=== PATIENT | female | born 1970 | race Caucasian/White ===

== ENCOUNTER → 2018-06-27 15:08 | Outpatient (CLI) | payer OTHER, SELFPAY ==
--- NOTE | 2018-06-27 | DI.MG.S_ITS ---
BILATERAL DIGITAL SCREENING MAMMOGRAM 3D/2D WITH CAD: 06/27/2018 CLINICAL: Routine screening. Comparison is made to exams dated: 06/14/2017 mammogram, 06/04/2016 mammogram, and 05/18/2015 mammogram - [facility]. The tissue of both breasts is heterogeneously dense. This may lower the sensitivity of mammography. Current study was also evaluated with a Computer Aided Detection (CAD) system. No significant masses, calcifications, or other findings are seen in either breast. There has been no significant interval change. IMPRESSION: NEGATIVE There is no mammographic evidence of malignancy. A 1 year screening mammogram is recommended. This exam was interpreted at Station ID: [id number]. NOTE: For mammograms, a report in lay terms will be sent to the patient. Approximately 15% of breast malignancies will not be visualized mammographically. In the management of a palpable breast mass, a negative mammogram must not discourage biopsy of a clinically suspicious lesion. Electronically Signed By: Mahsa matamoros/robert:06/27/2018 15:41:31 letter sent: Normal Exam ACR BI-RADS Category 1: Negative 3341F
== END ==
PROVIDERS: PCP Nurse Practitioner Family; Visit Provider Nurse Practitioner Family
DX: Z12.31 Encounter for screening mammogram for malignant neoplasm of breast (principal)
CPT/HCPCS: 77063; 77067

== ENCOUNTER → 2019-06-30 16:05 | Outpatient (CLI) | payer OTHER, SELFPAY ==
--- NOTE | 2019-06-30 | DI.MG.S_ITS ---
BILATERAL DIGITAL SCREENING MAMMOGRAM 3D/2D WITH CAD: 06/30/2019 CLINICAL: Routine screening. Comparison is made to exams dated: 06/27/2018 mammogram, 06/14/2017 mammogram, and 06/04/2016 mammogram - [facility]. The tissue of both breasts is heterogeneously dense. This may lower the sensitivity of mammography. Current study was also evaluated with a Computer Aided Detection (CAD) system. No significant masses, calcifications, or other findings are seen in either breast. There has been no significant interval change. IMPRESSION: NEGATIVE There is no mammographic evidence of malignancy. A 1 year screening mammogram is recommended. This exam was interpreted at Station ID: [id number]. NOTE: For mammograms, a report in lay terms will be sent to the patient. Approximately 15% of breast malignancies will not be visualized mammographically. In the management of a palpable breast mass, a negative mammogram must not discourage biopsy of a clinically suspicious lesion. Electronically Signed By: Mahsa matamoros/robert:06/30/2019 16:52:45 letter sent: Normal Exam ACR BI-RADS Category 1: Negative 3341F
== END ==
PROVIDERS: PCP Nurse Practitioner Family; Visit Provider Nurse Practitioner Family
DX: Z12.31 Encounter for screening mammogram for malignant neoplasm of breast (principal)
CPT/HCPCS: 77063; 77067

== ENCOUNTER → 2020-07-02 12:42 | Outpatient (CLI) | payer OTHER, SELFPAY ==
--- NOTE | 2020-07-02 | DI.MG.S_ITS ---
BILATERAL DIGITAL SCREENING MAMMOGRAM 3D/2D WITH CAD: 07/02/2020 CLINICAL: Routine screening. Comparison is made to exams dated: 06/30/2019 mammogram, 06/27/2018 mammogram, and 06/14/2017 mammogram - [facility]. The tissue of both breasts is heterogeneously dense. This may lower the sensitivity of mammography. Current study was also evaluated with a Computer Aided Detection (CAD) system. No significant masses, calcifications, or other findings are seen in either breast. There has been no significant interval change. IMPRESSION: NEGATIVE There is no mammographic evidence of malignancy. A 1 year screening mammogram is recommended. This exam was interpreted at Station ID: [id number]. NOTE: For mammograms, a report in lay terms will be sent to the patient. Approximately 15% of breast malignancies will not be visualized mammographically. In the management of a palpable breast mass, a negative mammogram must not discourage biopsy of a clinically suspicious lesion. Electronically Signed By: Josafat johansen/robert:07/04/2020 09:08:22 letter sent: Normal Exam ACR BI-RADS Category 1: Negative 3341F
== END ==
PROVIDERS: PCP Family Medicine; Referring Provider Family Medicine; Visit Provider Family Medicine
DX: Z12.31 Encounter for screening mammogram for malignant neoplasm of breast (principal)
CPT/HCPCS: 77063; 77067

== ENCOUNTER → 2021-07-04 15:46 | Outpatient (CLI) | payer OTHER, SELFPAY ==
--- NOTE | 2021-07-04 | DI.MG.S_ITS ---
BILATERAL DIGITAL SCREENING MAMMOGRAM 3D/2D WITH CAD: 07/04/2021 CLINICAL: Routine screening. Comparison is made to exams dated: 06/30/2019 mammogram, 07/02/2020 mammogram, and 06/27/2018 mammogram - [facility]. The tissue of both breasts is heterogeneously dense. This may lower the sensitivity of mammography. Current study was also evaluated with a Computer Aided Detection (CAD) system. No significant masses, calcifications, or other findings are seen in either breast. There has been no significant interval change. IMPRESSION: NEGATIVE There is no mammographic evidence of malignancy. A 1 year screening mammogram is recommended. This exam was interpreted at Station ID: [id number]. NOTE: For mammograms, a report in lay terms will be sent to the patient. Approximately 15% of breast malignancies will not be visualized mammographically. In the management of a palpable breast mass, a negative mammogram must not discourage biopsy of a clinically suspicious lesion. Electronically Signed By: Josafat johansen/robert:07/04/2021 17:01:36 letter sent: Normal Exam ACR BI-RADS Category 1: Negative 3341F
== END ==
PROVIDERS: PCP Family Medicine; Referring Provider Family Medicine; Visit Provider Family Medicine
DX: Z12.31 Encounter for screening mammogram for malignant neoplasm of breast (principal)
CPT/HCPCS: 77063; 77067

== ENCOUNTER → 2021-10-28 07:28 | Outpatient (CLI) | payer OTHER, SELFPAY ==
[2021-10-28 08:13] LABS: COVID19 -Nasal RAPID POSITIVE (Negative)
== END ==
PROVIDERS: PCP Family Medicine; Visit Provider Physician Assistant
DX: Z20.822 Contact with and (suspected) exposure to COVID-19 (principal)
CPT/HCPCS: 87635

== ENCOUNTER → 2022-07-18 16:36 | Outpatient (CLI) | payer OTHER, SELFPAY ==
--- NOTE | 2022-07-18 16:37 | DI.MG.S_ITS ---
BILATERAL DIGITAL SCREENING MAMMOGRAM 3D/2D WITH CAD: 07/18/2022 CLINICAL: Routine screening. Comparison is made to exams dated: 07/04/2021 mammogram, 07/02/2020 mammogram, and 06/30/2019 mammogram - [facility]. Both breasts are heterogeneously dense, which may obscure small masses (category c / 51-75% glandular tissue). Current study was also evaluated with a Computer Aided Detection (CAD) system. No significant masses, calcifications, or other findings are seen in either breast. There has been no significant interval change. IMPRESSION: NEGATIVE There is no mammographic evidence of malignancy. A 1 year screening mammogram is recommended. Based on the Tyrer Cuzick model (a risk assessment model) the patient's lifetime risk is 12.4% and her 10 year risk is 2.9%. According to the ACR, ACS, and NCCN guidelines, an annual breast MRI exam along with mammogram is recommended if the patient's lifetime risk is 20% or greater. This exam was interpreted at Station ID: [id number]. NOTE: For mammograms, a report in lay terms will be sent to the patient. Approximately 15% of breast malignancies will not be visualized mammographically. In the management of a palpable breast mass, a negative mammogram must not discourage biopsy of a clinically suspicious lesion. Electronically Signed By: Marcelino Guillory M.D., jr/robert:07/19/2022 11:13:26 letter sent: Normal Exam ACR BI-RADS Category 1: Negative 3341F
== END ==
PROVIDERS: PCP Family Medicine; Referring Provider Family Medicine; Visit Provider Family Medicine
DX: Z12.31 Encounter for screening mammogram for malignant neoplasm of breast (principal)
CPT/HCPCS: 77063; 77067

== ENCOUNTER → 2023-04-17 13:16 | Outpatient (CLI) | payer OTHER, SELFPAY ==
--- NOTE | 2023-04-17 | DI.MRI.S_ITS ---
PROCEDURE: MR LUMBAR SPINE WO CON INDICATIONS: Low back pain, unspecified TECHNIQUE: Noncontrast sagittal T1 spin echo and T2 fast echo, sagittal STIR, and T2 fast spin echo through the lumbar spine. In cases with scoliosis, additional coronal T2 fast spin echo may be performed. COMPARISON: None. FINDINGS: Image quality: Diagnostic. Alignment and Curvature: There is normal bony alignment. Bone Marrow: Marrow is of normal overall signal. Scattered foci are seen, which are hyperintense on T1-weighted and T2-weighted imaging, which are most consistent with benign vertebral body hemangiomas. The most prominent of these can be seen within the T11 vertebral body. No acute vertebral body compression fractures. Spinal Cord: Conus medullaris terminates at the L1 level. Visualized cord demonstrates normal signal and size. Paraspinous Soft Tissues: No paravertebral masses. T12-L1: Normal appearance. L1-L2: Normal appearance. L2-L3: Normal appearance. L3-L4: The disc height and disk signal are well-preserved. Mild to moderate disc bulge is seen, which is eccentric to the left. Mild facet joint hypertrophy is seen. There is jzef-eb-viemcdjg left-sided and mild right-sided neural foraminal narrowing. Mild central canal narrowing is seen. L4-L5: The disc height and disk signal are relatively well-preserved. Mild to moderate disc bulge is seen, with a central/left disc protrusion. There is a focal annular fissure seen posteriorly. Moderate facet joint hypertrophy is seen. Moderate bilateral neural foraminal narrowing is seen. Moderate central canal narrowing is seen. L5-S1: The disc height is well-preserved. Loss of disc signal is seen at this level. Mild to moderate disc bulge is seen, with a mild central disc protrusion. There is a focal annular fissure seen posteriorly. There is fvgb-mh-odhrnhiy right-sided and mild left-sided neural foraminal narrowing. There is at least moderate bilateral neural foraminal narrowing seen, right worse than left. There is a degree of compression seen upon the exiting nerve roots. Mild central canal narrowing is seen. IMPRESSION: Lower lumbar spine degenerative changes are seen. Dictated by: Reynaldo Hanson M.D. on 04/17/2023 at 13:13 Approved by: Reynaldo Hanson M.D. on 04/17/2023 at 13:16
== END ==
PROVIDERS: PCP Family Medicine; Referring Provider Orthopaedic Surgery Orthopaedic Surgery of the Spine; Visit Provider Orthopaedic Surgery Orthopaedic Surgery of the Spine
DX: M54.50 Low back pain, unspecified; M47.816 Spondylosis without myelopathy or radiculopathy, lumbar region
CPT/HCPCS: 72148

== ENCOUNTER 2023-05-07 20:30 | Emergency (ER) | payer OTHER, SELFPAY ==
--- NOTE | 2023-05-07 20:39 | DI.RAD.S_ITS ---
PROCEDURE: XR CHEST 1V INDICATIONS: chest pain TECHNIQUE: One view of the chest was acquired. COMPARISON: [facility], , CHEST 1 VIEW, 05/06/2017, 0:32. FINDINGS: Surgical changes and devices: None. Lungs and pleura: Lungs are clear. No pleural effusions or pneumothorax. Mediastinum: Mediastinal contours appear normal. Heart size is normal. Bones and chest wall: No suspicious bony lesions. Overlying soft tissues appear unremarkable. IMPRESSION: 1. No acute cardiopulmonary disease. Dictated by: Josafat Oliva M.D. on 05/07/2023 at 22:08 Approved by: Josafat Oliva M.D. on 05/07/2023 at 22:08
[2023-05-07 20:55] VITALS: BP 109/65; PULSE 60; RESP 14; TEMP 36.1; O2SAT 100; BMI 22.5
[2023-05-07] MEDS: ASPIRIN 81 MG CHEW TAB 324 MG PO (20:57)
[2023-05-07 21:05] LABS: Add Manual Diff / Slide Review NO; Basophils Absolute Auto 0 /uL (0-100); Basophils Percent Auto 0.6 % (0-2); Eosinophils Absolute Auto 100 /uL (0-450); Eosinophils Percent Auto 1.7 % (2-4); Hematocrit 40.7 % (36-46); Hemoglobin 13.9 g/dL (12.0-16.0); Lymphocytes Absolute Auto 3100 /uL (1100-4500); Lymphocytes Percent Auto 40.7 % (25-40); Mean Corpuscular HGB Conc 34.2 % (30-36); Mean Corpuscular Hemoglobin 31.2 PG (26-34); Mean Corpuscular Volume 91.3 fL (80-100); Monocytes Absolute Auto 500 /uL (0-900); Monocytes Percent Auto 6.7 % (3-14); Neutrophils Absolute Auto 3900 /uL (1500-7000); Neutrophils Percent Auto 50.3 % (50-75); Platelet Count 331 X10^3/uL (150-400); Red Blood Cell Count 4.46 X10^6/uL (4.0-5.2); Red Cell Distribution Width 13.6 % (11.6-14.8); White Blood Cell Count 7.7 X10^3/uL (4.5-11.0)
[2023-05-07 21:10] LABS: INR 1.1 (0.9-1.3); Prothrombin Time 12.9 SECONDS (10.1-12.7)
[2023-05-07 21:13] LABS: PTT Partial Thromboplastin Tim 31 SECONDS (26-36)
[2023-05-07 21:21] LABS: Alanine Aminotransferase 22 IU/L (<35); Albumin 4.1 g/dL (3.5-5.0); Albumin Globulin Ratio 1.1 (1.0-2.8); Alkaline Phosphatase 34 U/L (38-126); Aspartate Aminotransferase 27 IU/L (14-36); Blood Urea Nitrogen 12 mg/dL (7-17); Calcium 9.6 mg/dL (8.4-10.2); Carbon Dioxide 30 mmol/L (22-32); Chloride 102 mmol/L (98-107); Creatine Kinase 118 U/L (30-135); Estimated Glomerular Filt Rate > 60 mL/min (>60); Globulin 3.6 g/dL (1.7-4.1); Glucose 108 mg/dL (70-100); HEMOLYSIS 30 (0-50); Lipase 98 U/L (23-300); Magnesium 2.1 mg/dL (1.6-2.3); Potassium 3.7 mmol/L (3.4-5.1); Sodium 137 mmol/L (137-145); Total Protein 7.7 g/dL (6.3-8.2)
[2023-05-07 21:33] LABS: Troponin I < 0.012 ng/mL (0.01-0.034)
[2023-05-07 21:37] LABS: Bilirubin Total 0.6 mg/dL (0.2-1.3)
[2023-05-07 22:49] VITALS: BP 115/62; PULSE 55; RESP 10; O2SAT 99
[2023-05-07 23:11] VITALS: PULSE 60; RESP 12; O2SAT 98
[2023-05-07 23:23] LABS: Troponin I < 0.012 ng/mL (0.01-0.034)
[2023-05-07 23:30] VITALS: PULSE 51; RESP 15; O2SAT 97
[2023-05-08] VITALS: PULSE 49; RESP 11; O2SAT 97
--- NOTE | 2023-05-08 00:10 | ED.CHESTPAIN ---
HPI - Chest Pain General Chief Complaint: Chest Pain Stated Complaint: chest pains x 2 days, now getting worse Time Seen by Provider: 05/08/23 00:10 Source: patient Mode of arrival: Ambulatory Limitations: no limitations History of Present Illness HPI narrative: 52-year-old woman with history of hypothyroidism, she was diagnosed with COVID about 3 weeks ago describes it as a mild an uneventful course with no symptoms for the last week or so presents with chest pain that has been intermittently present now for 2 days. She describes it as left upper chest sharp pain that lasts for anywhere from 1215 minutes is not specifically associated with position, deep breathing, activity, lying flat. She describes no fevers, cough, chills, lower extremity edema, abdominal pain, vomiting. There is no significant family history of cardiac disease that runs through her family and she has minimal risk factors. Related Data Home Medications Medication Instructions Recorded Confirmed levothyroxine 13 mcg capsule 13 mcg PO DAILY 10/28/21 10/28/21 Allergies Allergy/AdvReac Type Severity Reaction Status Date / Time No Known Drug Allergies Allergy Unverified 10/28/21 07:27 Review of Systems Review of Systems Narrative: Pertinent positive and negative findings as per HPI Patient History Medical History (Updated 05/08/23 @ 00:55 by Suyapa Roman MD) Hypothyroid Social History Smoking Status: Never smoker Smoking Status: Never smoker Substance Use Type: does not use Exam Initial Vital Signs Initial Vital Signs: Vital Signs Temperature 97 F L 05/07/23 20:55 Pulse Rate 60 05/07/23 20:55 Respiratory Rate 14 05/07/23 20:55 Blood Pressure 109/65 05/07/23 20:55 Pulse Oximetry 100 05/07/23 20:55 Oxygen Delivery Method Room Air 05/07/23 20:55 General: Healthy appearing, in no acute distress. Able to give a complete and coherent history. Well-nourished well-developed HEENT: Moist mucous membranes, normal sclera with reactive pupils, Neck: No JVD, supple Respiratory: Lungs are clear to auscultation, no wheezing no rales no rhonchi. Full and symmetrical air movement. No reproducible chest pain with chest wall manipulation or palpation along sternal border Cardiac: Regular rate and rhythm no murmurs no bruits Abdomen: Soft, nontender, good bowel tones, no flank pain Skin: Warm and dry, no rashes Neurologic: Grossly neurologically intact with no obvious asymmetries or abnormalities Extremities: No trauma, well perfused, no edema Psych: Cooperative, appropriate insight and affect Course Orders Ordered: ED Orders 05/07/23 20:39 XR chest 1V Stat EKG-12 Lead Stat 05/07/23 20:50 Complete Blood Count AUTO DIFF Stat Comprehensive Metabolic Panel Stat Lipase Stat Magnesium Stat PTT Partial Thromboplastin Yann Stat Prothrombin Time INR Stat Troponin & CK Cardiac Panel Stat 05/07/23 22:55 Trop I [Troponin I] Stat 05/07/23 23:07 EKG-12 Lead Stat Discontinued Medications Aspirin (Aspirin 81 Mg Chew Tab) 324 mg PO NOW ONE Stop: 05/07/23 20:40 Last Admin: 05/07/23 20:57 Dose: 324 mg Documented By: DANISH Vital Signs Vital signs: Vital Signs - 8 hr 05/07/23 20:55 Temperature 97 F L Pulse Rate 60 Respiratory Rate 14 Blood Pressure 109/65 Pulse Oximetry 100 Oxygen Delivery Method Room Air MDM - Chest Pain Lab Data 05/07/23 20:50 05/07/23 20:50 Labs: Lab Results 05/07/23 05/07/23 05/07/23 Range/Units 20:50 20:50 20:50 WBC 7.7 (4.5-11.0) X10^3/uL RBC 4.46 (4.0-5.2) X10^6/uL Hgb 13.9 (12.0-16.0) g/dL Hct 40.7 (36-46) % MCV 91.3 (80-100) fL MCH 31.2 (26-34) PG MCHC 34.2 (30-36) % RDW 13.6 (11.6-14.8) % Plt Count 331 (150-400) X10^3/uL Neut % (Auto) 50.3 (50-75) % Lymph % (Auto) 40.7 H (25-40) % [place] % (Auto) 6.7 (3-14) % Eos % (Auto) 1.7 L (2-4) % Baso % (Auto) 0.6 (0-2) % Neut # (Auto) 3900 (1655-0219) /uL Lymph # (Auto) 3100 (3982-4835) /uL [place] # (Auto) 500 (0-900) /uL Eos # (Auto) 100 (0-450) /uL Baso # (Auto) 0 (0-100) /uL PT 12.9 H (10.1-12.7) SECONDS INR 1.1 (0.9-1.3) APTT 31 (26-36) SECONDS Sodium 137 (137-145) mmol/L Potassium 3.7 (3.4-5.1) mmol/L Chloride 102 (98-107) mmol/L Carbon Dioxide 30 (22-32) mmol/L BUN 12 (7-17) mg/dL Creatinine 0.92 (0.52-1.04) mg/dL Estimated GFR > 60 (>60) mL/min BUN/Creatinine Ratio 13.0 (6-22) Glucose 108 H (70-100) mg/dL Calcium 9.6 (8.4-10.2) mg/dL Magnesium 2.1 (1.6-2.3) mg/dL Total Bilirubin 0.6 (0.2-1.3) mg/dL AST 27 (14-36) IU/L ALT 22 (<35) IU/L Alkaline Phosphatase 34 L (38-126) U/L Total Creatine Kinase 118 (30-135) U/L Troponin I < 0.012 (0.01-0.034) ng/mL Total Protein 7.7 (6.3-8.2) g/dL Albumin 4.1 (3.5-5.0) g/dL Globulin 3.6 (1.7-4.1) g/dL Albumin/Globulin Ratio 1.1 (1.0-2.8) Lipase 98 (23-300) U/L 05/07/23 Range/Units 22:55 WBC (4.5-11.0) X10^3/uL RBC (4.0-5.2) X10^6/uL Hgb (12.0-16.0) g/dL Hct (36-46) % MCV (80-100) fL MCH (26-34) PG MCHC (30-36) % RDW (11.6-14.8) % Plt Count (150-400) X10^3/uL Neut % (Auto) (50-75) % Lymph % (Auto) (25-40) % [place] % (Auto) (3-14) % Eos % (Auto) (2-4) % Baso % (Auto) (0-2) % Neut # (Auto) (7006-8674) /uL Lymph # (Auto) (4499-6575) /uL [place] # (Auto) (0-900) /uL Eos # (Auto) (0-450) /uL Baso # (Auto) (0-100) /uL PT (10.1-12.7) SECONDS INR (0.9-1.3) APTT (26-36) SECONDS Sodium (137-145) mmol/L Potassium (3.4-5.1) mmol/L Chloride (98-107) mmol/L Carbon Dioxide (22-32) mmol/L BUN (7-17) mg/dL Creatinine (0.52-1.04) mg/dL Estimated GFR (>60) mL/min BUN/Creatinine Ratio (6-22) Glucose (70-100) mg/dL Calcium (8.4-10.2) mg/dL Magnesium (1.6-2.3) mg/dL Total Bilirubin (0.2-1.3) mg/dL AST (14-36) IU/L ALT (<35) IU/L Alkaline Phosphatase (38-126) U/L Total Creatine Kinase (30-135) U/L Troponin I < 0.012 (0.01-0.034) ng/mL Total Protein (6.3-8.2) g/dL Albumin (3.5-5.0) g/dL Globulin (1.7-4.1) g/dL Albumin/Globulin Ratio (1.0-2.8) Lipase (23-300) U/L MDM Narrative Medical decision making narrative: CC: Left chest pain for 48 hours, acute problem uncertain prognosis Complicating co-morbidities: Recently resolved COVID infection, hypothyroidism Data collected from: patient, Differential considered: Acute coronary syndrome, dissection, pulmonary embolism, pneumothorax, cardiomyopathy, pleurisy, chest wall pain, Exam documented above, pertinent findings include: Entirely benign exam with no reproducible chest pain Lab Test results independently reviewed as above. Pertinent findings: CBC shows White blood cell count is unremarkable, no significant anemia Chemistries are reassuring Troponin x3 over the course of her ER stay are all undetectable Free T4 is appropriate at 1.28 Independently reviewed EKG sinus rhythm at a rate of 61 with normal intervals, normal axis no acute ischemic changes. EKG 2. Is equally unremarkable and unchanged from initial Imaging studies independently reviewed: Chest x-ray is unremarkable Treatments: Tubal aspirin, parenteral Toradol Discussion: 52-year-old woman with 48 hours of intermittent left upper chest pain with unremarkable workup. Her heart score is 1 due to age alone placing her low risk category. Clinical exam and vital signs do not suggest pulmonary embolism. No evidence of additional life-threatening abnormality or acute coronary syndrome, pneumonia, pneumothorax, cardiomyopathy. I am less concerned for pleurisy however most likely diagnosis at this point is some type of musculoskeletal chest pain. Findings reviewed with patient I do not believe additional imaging studies admission or laboratory workup required at this time. She is given Toradol which does seem to help. Discussed use of ibuprofen and Tylenol and return should symptoms worsen. Questions are answered and she is safe for discharge Discharge Plan Departure Patient Disposition: Home Clinical Impression: Atypical chest pain Instructions: DI for Atypical Chest Pain Activity Restrictions/Additional Instructions: Thank you for coming in today I am not finding any life-threatening abnormalities to explain your chest pain. Specifically, there is no sign of heart attack, enlarged heart, collapsed lung, pneumonia or any complications from your recent mild COVID infection. In the emergency department you are given a dose of Toradol to see if this might help with a musculoskeletal component of your pain. If you find that it did help after discharge you may find that using 400 mg of ibuprofen (2 pnzw-tsl-iacflji pills) and 1 Tylenol every 6 hours can be very helpful. If you develop shortness of breath, difficulty lying flat because of shortness of breath, a change to the quality or intensity of your pain or develop new symptoms it would be very appropriate return to the emergency department Prescriptions: No Action levothyroxine 13 mcg capsule 13 mcg PO DAILY Referrals: Taniya Cooper DO [Primary Care Provider] - Stand Alone Forms: Patient Portal/API
[2023-05-08 00:30] VITALS: PULSE 52; RESP 14; O2SAT 96
[2023-05-08 00:45] VITALS: BP 96/53; PULSE 62; RESP 22; O2SAT 99
[2023-05-08] MEDS: KETOROLAC 30 MG/ML VIAL 15 MG IV (00:54)
[2023-05-08 01:00] VITALS: BP 100/58; PULSE 58; RESP 17; O2SAT 99
== END 2023-05-08 01:24 | disposition home or self-care (01) ==
PROVIDERS: Emergency Provider Emergency Medicine; PCP Family Medicine
DX: R07.89 Other chest pain (principal)
CPT/HCPCS: 36415; 71045; 80053; 82550; 83690; 83735; 84484; 85025; 85610; 85730; 93005; 93010; 96374; 99284; J1885

== ENCOUNTER → 2023-07-19 08:18 | Outpatient (CLI) | payer OTHER, SELFPAY ==
--- NOTE | 2023-07-19 | DI.MG.S_ITS ---
BILATERAL DIGITAL SCREENING MAMMOGRAM 3D/2D WITH CAD: 07/19/2023 CLINICAL: Routine screening. Comparison is made to exams dated: 07/18/2022 mammogram, 07/04/2021 mammogram, and 07/02/2020 mammogram - [facility]. Both breasts are heterogeneously dense, which may obscure small masses (category c / 51-75% glandular tissue). Current study was also evaluated with a Computer Aided Detection (CAD) system. No significant masses, calcifications, or other findings are seen in either breast. There has been no significant interval change. IMPRESSION: NEGATIVE There is no mammographic evidence of malignancy. A 1 year screening mammogram is recommended. Based on the Tyrer Cuzick model (a risk assessment model) the patient's lifetime risk is 12.4% and her 10 year risk is 3.0%. According to the ACR, ACS, and NCCN guidelines, an annual breast MRI exam along with mammogram is recommended if the patient's lifetime risk is 20% or greater. This exam was interpreted at Station ID: [id number]. NOTE: For mammograms, a report in lay terms will be sent to the patient. Approximately 15% of breast malignancies will not be visualized mammographically. In the management of a palpable breast mass, a negative mammogram must not discourage biopsy of a clinically suspicious lesion. Electronically Signed By: Mahsa matamoros/robert:07/19/2023 10:07:19 letter sent: Normal Exam ACR BI-RADS Category 1: Negative 3341F
== END ==
PROVIDERS: PCP Family Medicine; Referring Provider Family Medicine; Visit Provider Family Medicine
DX: Z12.31 Encounter for screening mammogram for malignant neoplasm of breast (principal)
CPT/HCPCS: 77063; 77067

== ENCOUNTER 2023-12-16 16:57 | Emergency (ER) | payer OTHER, SELFPAY ==
[2023-12-16] VITALS (8 sets, daily range): BP systolic 96–135; BP diastolic 52–61; PULSE 58–75; RESP 12–23; TEMP 36.6; O2SAT 96–100; BMI 20.9
--- NOTE | 2023-12-16 17:05 | DI.RAD.S_ITS ---
PROCEDURE: XR CHEST 1V INDICATIONS: chest pain TECHNIQUE: One view of the chest was acquired. COMPARISON: [facility], CR, XR CHEST 1V, 05/07/2023, 20:48. FINDINGS: Surgical changes and devices: None. Lungs and pleura: Lungs are clear. No pleural effusions or pneumothorax. Mediastinum: Mediastinal contours appear normal. Heart size is normal. Bones and chest wall: No suspicious bony lesions. Overlying soft tissues appear unremarkable. IMPRESSION: No acute cardiopulmonary abnormality is seen. Dictated by: Lizbeth Puckett M.D. on 12/16/2023 at 17:48 Approved by: Lizbeth Puckett M.D. on 12/16/2023 at 17:48
[2023-12-16] MEDS: ASPIRIN 81 MG CHEW TAB 324 MG PO (17:09)
[2023-12-16 17:21] LABS: Add Manual Diff / Slide Review NO; Basophils Absolute Auto 0 /uL (0-100); Basophils Percent Auto 0.7 % (0-2); Eosinophils Absolute Auto 100 /uL (0-450); Eosinophils Percent Auto 1.3 % (2-4); Hematocrit 43.5 % (36-46); Hemoglobin 14.8 g/dL (12.0-16.0); Lymphocytes Absolute Auto 1900 /uL (1100-4500); Lymphocytes Percent Auto 30.2 % (25-40); Mean Corpuscular HGB Conc 34.1 % (30-36); Mean Corpuscular Hemoglobin 32.8 PG (26-34); Mean Corpuscular Volume 96.1 fL (80-100); Monocytes Absolute Auto 500 /uL (0-900); Monocytes Percent Auto 7.2 % (3-14); Neutrophils Absolute Auto 3800 /uL (1500-7000); Neutrophils Percent Auto 60.6 % (50-75); Platelet Count 286 X10^3/uL (150-400); Red Blood Cell Count 4.53 X10^6/uL (4.0-5.2); Red Cell Distribution Width 13.5 % (11.6-14.8); White Blood Cell Count 6.3 X10^3/uL (4.5-11.0)
[2023-12-16 17:43] LABS: Prothrombin Time 11.9 SECONDS (9.4-12.5)
[2023-12-16 17:45] LABS: PTT Partial Thromboplastin Tim 33 SECONDS (25.1-36.5)
[2023-12-16 17:47] LABS: Alanine Aminotransferase 34 IU/L (<35); Albumin 4.6 g/dL (3.5-5.0); Albumin Globulin Ratio 1.2 (1.0-2.8); Alkaline Phosphatase 53 U/L (38-126); Aspartate Aminotransferase 32 IU/L (14-36); BUN Creatinine Ratio 23.6 (6-22); Bilirubin Total 0.7 mg/dL (0.2-1.3); Blood Urea Nitrogen 21 mg/dL (7-17); Calcium 9.5 mg/dL (8.4-10.2); Carbon Dioxide 31 mmol/L (22-32); Chloride 104 mmol/L (98-107); Creatine Kinase 115 U/L (30-135); Estimated Glomerular Filt Rate > 60 mL/min (>60); Globulin 3.8 g/dL (1.7-4.1); Glucose 103 mg/dL (70-100); HEMOLYSIS < 15 (0-50); Lipase 68 U/L (23-300); Potassium 3.8 mmol/L (3.4-5.1); Sodium 140 mmol/L (137-145); Total Protein 8.4 g/dL (6.3-8.2)
[2023-12-16 17:58] LABS: Troponin I < 0.012 ng/mL (0.01-0.034)
--- NOTE | 2023-12-16 18:53 | ED.CHESTPAIN ---
HPI - Chest Pain General Chief Complaint: Chest Pain Stated Complaint: chest pain Time Seen by Provider: 12/16/23 17:50 Source: patient Mode of arrival: Ambulatory Limitations: no limitations History of Present Illness HPI narrative: Patient is a 53-year-old female history of hypothyroid presenting today with chest discomfort. She reports it has been going on for last 4-5 days. It is fairly constant she describes it as a dull ache it is nonradiating. She is fairly active she has been able to exercise she mostly does body weights or uses a 10 lb weight she says nothing extreme. She has been able to do all of this without stopping. It has not really reproducible. She reports that she has been under a lot of stress. She has not traveled. It is mostly on the left side of her chest. She denies any fever or chills. She has not a smoker no known family history of coronary artery disease Related Data Home Medications Medication Instructions Recorded Confirmed levothyroxine 13 mcg capsule 13 mcg PO DAILY 10/28/21 10/28/21 Allergies Allergy/AdvReac Type Severity Reaction Status Date / Time No Known Drug Allergies Allergy Unverified 10/28/21 07:27 Patient History Medical History Hypothyroid Social History Smoking Status: Never smoker Smoking Status: Never smoker Substance Use Type: does not use Exam Initial Vital Signs Initial Vital Signs: Vital Signs Temperature 97.8 F 12/16/23 16:59 Pulse Rate 75 12/16/23 16:59 Respiratory Rate 18 12/16/23 16:59 Blood Pressure 128/61 12/16/23 16:59 Pulse Oximetry 100 12/16/23 16:59 Oxygen Delivery Method Room Air 12/16/23 16:59 GENERAL: Alert pleasant well-appearing 53-year-old female and in no acute distress. HEENT: Head atraumatic,EOMI, pupils reactive, face symmetric, moist mucous membranes CARDIOVASCULAR: Regular rate and rhythm without murmurs, rubs or gallops. Minimally reproducible rib 5 RESPIRATORY: Breath sounds equal bilaterally, no wheezes rales or rhonchi. ABDOMEN: Soft, nontender. Normoactive bowel sounds all 4 quadrants. No guarding or rebound. EXTREMITIES: Normal range of motion, no clubbing or edema. Neurovascularly intact NEUROLOGICAL: Alert and oriented x4.Normal gait and speech. SKIN: Warm, dry, no laceration, no petechiae, no rashes or lesions. Scores HEART Score Heart Score history: Slightly Suspicious Heart Score EKG: Normal Heart Score Age: 45-64 years old Heart Score risk factors: No known risk factors Heart Score troponin: < or = to normal limit Heart Score Total: 1 Course Orders Ordered: ED Orders 12/16/23 17:05 XR chest 1V Stat Complete Blood Count AUTO DIFF Stat Comprehensive Metabolic Panel Stat Lipase Stat Magnesium Stat PTT Partial Thromboplastin Yann Stat Prothrombin Time INR Stat Troponin & CK Cardiac Panel Stat EKG-12 Lead Stat 12/16/23 18:49 Trop I [Troponin I] Stat Discontinued Medications Aspirin (Aspirin 81 Mg Chew Tab) 324 mg PO NOW ONE Stop: 12/16/23 17:06 Last Admin: 12/16/23 17:09 Dose: 324 mg Documented By: JESUS Vital Signs Vital signs: Vital Signs - 8 hr 12/16/23 18:30 12/16/23 18:30 12/16/23 19:00 Pulse Rate 58 L 63 Respiratory Rate 16 23 Blood Pressure 99/58 L Pulse Oximetry 99 96 12/16/23 19:01 12/16/23 19:01 12/16/23 19:30 Pulse Rate 62 61 Respiratory Rate 17 12 Blood Pressure 96/52 L Pulse Oximetry 100 99 MDM - Chest Pain Lab Data 12/16/23 17:05 12/16/23 17:05 Labs: Lab Results 12/16/23 12/16/23 Range/Units 17:05 18:49 WBC 6.3 (4.5-11.0) X10^3/uL RBC 4.53 (4.0-5.2) X10^6/uL Hgb 14.8 (12.0-16.0) g/dL Hct 43.5 (36-46) % MCV 96.1 (80-100) fL MCH 32.8 (26-34) PG MCHC 34.1 (30-36) % RDW 13.5 (11.6-14.8) % Plt Count 286 (150-400) X10^3/uL Neut % (Auto) 60.6 (50-75) % Lymph % (Auto) 30.2 (25-40) % [place]haw % (Auto) 7.2 (3-14) % Eos % (Auto) 1.3 L (2-4) % Baso % (Auto) 0.7 (0-2) % Neut # (Auto) 3800 (9074-2543) /uL Lymph # (Auto) 1900 (0184-5577) /uL [place] # (Auto) 500 (0-900) /uL Eos # (Auto) 100 (0-450) /uL Baso # (Auto) 0 (0-100) /uL PT 11.9 (9.4-12.5) SECONDS INR 1.0 (0.9-1.3) APTT 33 (25.1-36.5) SECONDS Sodium 140 (137-145) mmol/L Potassium 3.8 (3.4-5.1) mmol/L Chloride 104 (98-107) mmol/L Carbon Dioxide 31 (22-32) mmol/L BUN 21 H (7-17) mg/dL Creatinine 0.89 (0.52-1.04) mg/dL Estimated GFR > 60 (>60) mL/min BUN/Creatinine Ratio 23.6 H (6-22) Glucose 103 H (70-100) mg/dL Calcium 9.5 (8.4-10.2) mg/dL Magnesium 2.0 (1.6-2.3) mg/dL Total Bilirubin 0.7 (0.2-1.3) mg/dL AST 32 (14-36) IU/L ALT 34 (<35) IU/L Alkaline Phosphatase 53 (38-126) U/L Total Creatine Kinase 115 (30-135) U/L Troponin I < 0.012 < 0.012 (0.01-0.034) ng/mL Total Protein 8.4 H (6.3-8.2) g/dL Albumin 4.6 (3.5-5.0) g/dL Globulin 3.8 (1.7-4.1) g/dL Albumin/Globulin Ratio 1.2 (1.0-2.8) Lipase 68 (23-300) U/L Imaging Data Chest x-ray: Radiologist's Impression: PROCEDURE: XR CHEST 1V INDICATIONS: chest pain TECHNIQUE: One view of the chest was acquired. COMPARISON: [facility], CR, XR CHEST 1V, 05/07/2023, 20:48. FINDINGS: Surgical changes and devices: None. Lungs and pleura: Lungs are clear. No pleural effusions or pneumothorax. Mediastinum: Mediastinal contours appear normal. Heart size is normal. Bones and chest wall: No suspicious bony lesions. Overlying soft tissues appear unremarkable. IMPRESSION: No acute cardiopulmonary abnormality is seen. Dictated by: Lizbeth Puckett M.D. on 12/16/2023 at 17:48 ECG Data Attestation: I personally reviewed and interpreted this ECG as follows: Prior ECG tracings: available for review Interpretation: Normal sinus rhythm rate [address] changes no T-wave inversions MDM Narrative Medical decision making narrative: Patient 53-year-old female only history of hypothyroid presenting today with chest discomfort ongoing for the last couple of days. She has been able to exercise without eating to stop. She reports that she has been under a significant amount of stress. EKG does not show any ischemic changes she was 2- troponins. She has a low risk heart score. Blood pressure is noted to be low in the ED however she reports is normal for her. She has not traveled no suspicion for pulmonary embolism she has not tachycardic or short of breath. At this time I encourage outpatient workup and to return if symptoms worsen Discharge Plan Departure Patient Disposition: Home Clinical Impression: Atypical chest pain Instructions: DI for Atypical Chest Pain Activity Restrictions/Additional Instructions: *You have been diagnosed with atypical chest pain *What to do: At this time please discuss with your primary care provider about possibly needing further cardiac workup. Although at this time in the ED workup is overall reassuring. *Continue to take medications as directed *Follow up with your primary care provider in 2-3 days or call [phone] *Return to ER if you should have increasing chest pain palpitations shortness of breath dizziness lightheadedness or any new, worsening or concerning symptoms Prescriptions: No Action levothyroxine 13 mcg capsule 13 mcg PO DAILY Referrals: Taniya Cooper DO [Primary Care Provider] - Stand Alone Forms: Patient Portal/API
[2023-12-16 19:29] LABS: Troponin I < 0.012 ng/mL (0.01-0.034)
== END 2023-12-16 19:48 | disposition home or self-care (01) ==
PROVIDERS: Emergency Medicine; Emergency Provider Emergency Medicine; PCP Family Medicine
DX: R07.89 Other chest pain (principal)
CPT/HCPCS: 36415; 71045; 80053; 82550; 83690; 83735; 84484; 85025; 85610; 85730; 93005; 93010; 99284

== ENCOUNTER → 2023-12-20 15:11 | Outpatient (CLI) | payer OTHER, SELFPAY ==
--- NOTE | 2023-12-20 15:12 | DI.MRI.S_ITS ---
PROCEDURE: MR HEAD/BRAIN WO CON INDICATIONS: Headache, unspecified TECHNIQUE: Noncontrast axial T1 spin echo, axial T2 fast spin echo, sagittal and axial FLAIR, coronal T2 fast spin echo, axial gradient echo, axial diffusion and ADC through the brain. COMPARISON: None. FINDINGS: Image quality: Excellent. CSF Spaces: Basal cisterns are patent. No extra-axial fluid collections. Ventricles are normal in size and shape. Brain: No intracranial masses or hemorrhage. Gan/white matter interface is normal. Brainstem appears normal. Diffusion-weighted images demonstrate no acute infarct. No chronic ischemic insults. Normal intravascular flow voids are present. Skull and face: Calvarium has normal marrow signal. Orbits appear normal. Sinuses: Sinuses and mastoids are clear. IMPRESSION: No cause for patient's symptoms is identified. No acute intracranial abnormalities. Dictated by: Aristeo Obrien M.D. on 12/20/2023 at 16:29 Approved by: Aristeo Orbien M.D. on 12/20/2023 at 16:31
== END ==
PROVIDERS: PCP Family Medicine; Referring Provider Internal Medicine; Visit Provider Internal Medicine
DX: R51.9 Headache, unspecified (principal)
CPT/HCPCS: 70551

== ENCOUNTER → 2024-07-20 16:42 | Outpatient (CLI) | payer OTHER, SELFPAY ==
--- NOTE | 2024-07-20 | DI.MG.S_ITS ---
BILATERAL DIGITAL SCREENING MAMMOGRAM 3D/2D WITH CAD: 07/20/2024 CLINICAL: Routine screening. Comparison is made to exams dated: 07/19/2023 mammogram, 07/18/2022 mammogram, 07/04/2021 mammogram, 07/02/2020 mammogram, and 06/30/2019 mammogram - [facility]. The breasts are heterogeneously dense, which may obscure small masses (category c / 51-75% glandular tissue). Current study was also evaluated with a Computer Aided Detection (CAD) system. No significant masses, calcifications, or other findings are seen in either breast. There has been no significant interval change. IMPRESSION: NEGATIVE There is no mammographic evidence of malignancy. A 1 year screening mammogram is recommended. Based on the Tyrer Cuzick model (a risk assessment model) the patient's lifetime risk is 11.6% and her 10 year risk is 2.9%. According to the ACR, ACS, and NCCN guidelines, an annual breast MRI exam along with mammogram is recommended if the patient's lifetime risk is 20% or greater. This exam was interpreted at Station ID: [id number]. NOTE: For mammograms, a report in lay terms will be sent to the patient. Approximately 15% of breast malignancies will not be visualized mammographically. In the management of a palpable breast mass, a negative mammogram must not discourage biopsy of a clinically suspicious lesion. Electronically Signed By: Kole lemus/robert:07/21/2024 09:39:56 letter sent: Normal Exam ACR BI-RADS Category 1: Negative
== END ==
PROVIDERS: PCP Family Medicine; Referring Provider Family Medicine; Visit Provider Family Medicine
DX: Z12.31 Encounter for screening mammogram for malignant neoplasm of breast (principal); R92.333 Mammographic heterogeneous density, bilateral breasts
CPT/HCPCS: 77063; 77067

== ENCOUNTER → 2025-07-27 15:12 | Outpatient (CLI) | payer OTHER, SELFPAY ==
--- NOTE | 2025-07-27 15:13 | DI.MG.S_ITS ---
MM screening mammo BI: 07/27/2025. BI-RADS: 1 CLINICAL: 54-year old female for bilateral screening mammogram. Tyrer-Cuzick lifetime risk of 6.5%. No personal or first-degree family history of breast cancer. PRIOR EXAMS 07/20/2024, 07/19/2023, 07/18/2022, 07/04/2021, MAMMOGRAPHY TECHNIQUE: 2D and 3D (tomosynthesis) digital mammographic views obtained, with additional images as needed for full coverage. Current study was also evaluated with a Computer Aided Detection (CAD) system. DENSITY C. The breasts are heterogeneously dense, which may obscure small masses. MAMMOGRAPHY FINDINGS Bilateral: No suspicious mass, asymmetry, microcalcification, or other abnormality seen. IMPRESSION: * No evidence of malignancy. RECOMMENDATIONS Bilateral * Annual screening mammography. OVERALL ASSESSMENT CATEGORY BI-RADS-1: Negative. The [employer] recommends annual screening mammography beginning at age 40 for women with average risk of breast cancer. ELECTRONICALLY SIGNED: Duyen Pruett M.D. on 07/30/2025 at 04:10:49 PM PT Interpreting Station ID: [id number]
== END ==
PROVIDERS: PCP Family Medicine; Referring Provider Family Medicine; Visit Provider Family Medicine
DX: Z12.31 Encounter for screening mammogram for malignant neoplasm of breast (principal); R92.333 Mammographic heterogeneous density, bilateral breasts
CPT/HCPCS: 77063; 77067